=== PATIENT | female | born 1955 | race Caucasian/White ===

== ENCOUNTER 2017-03-18 10:26 | Emergency (ER) | payer BC, OTHER ==
--- NOTE | 2017-03-18 10:59 | ED Physician Documentation ---
PD HPI FOCAL NEURO - Stated complaint Stated Complaint: LEFT SIDE NUMBNESS - Chief complaint Chief Complaint: Neuro - History obtained from History obtained from: Patient - History of Present Illness Timing - onset: Yesterday Timing - details: Gradual onset, Still present Time of symptom onset unknown: Time of onset unknown (yesterday) Severity of deficit: Mild Numbness: Face, Arm, Hand, Left Associated symptoms: No: Headache, Nausea / vomiting, Chest pain Baseline status: positive: A&OX3, ambulatory, indep Similar symptoms before: Has not had sx before - Additional information Additional information: The patient is a 61-year-old female who presents with decreased sensation in her left upper extremity and face. She first noticed decreased sensation in her left hand yesterday, and felt fatigued last night with mild headache. She took an Aleve p.m. She awoke this morning with decreased sensation extending up her left arm, and involving her neck and left side of her face. She denies any weakness. She has no headache this morning. She denies visual disturbance or problem with her speech. She denies chest pain, shortness of breath, nausea or vomiting. She reports an episode about 1 month ago of difficulty with her speech for a very brief period. She denies history of similar symptoms prior to that. Review of Systems Constitutional: reports: Fatigue (last night). denies: Fever Eyes: denies: Loss of vision, Decreased vision Ears: denies: Tinnitus/ringing Nose: denies: Congestion Throat: denies: Sore throat Cardiac: denies: Chest pain / pressure, Palpitations Respiratory: denies: Dyspnea, Cough GI: denies: Abdominal Pain, Nausea, Vomiting : denies: Dysuria Skin: denies: Rash Musculoskeletal: denies: Neck pain, Back pain, Extremity pain, Extremity swelling Neurologic: reports: Numbness (left face and upper extremity.). denies: Focal weakness, Altered mental status PD PAST MEDICAL HISTORY - Past Medical History Past Medical History: Yes - Past Surgical History Past Surgical History: No - Present Medications Home Medications: Ambulatory Orders Medication Instructions Recorded Confirmed Mirtazapine 7.5 mg PO DAILY 03/18/17 03/18/17 - Allergies Allergies/Adverse Reactions: Allergies Allergy/AdvReac Type Severity Reaction Status Date / Time No Known Drug Allergies Allergy Verified 03/18/17 10:31 - Social History Does the pt smoke?: No Smoking Status: Never smoker Does the pt drink ETOH?: Yes Does the pt have substance abuse?: No - POLST Patient has POLST: No PD ED PE NORMAL - Vitals Vital signs reviewed: Yes (normal) - General General: Alert and oriented X 3, Well developed/nourished - HEENT HEENT: Atraumatic, PERRL, EOMI, Ears normal, Pharynx benign, Other (no visual field deficit) - Neck Neck: Supple, no meningeal sign, No adenopathy, No JVD - Cardiac Cardiac: RRR, No murmur - Respiratory Respiratory: No respiratory distress, Clear bilaterally - Abdomen Abdomen: Soft, Non tender - Back Back: No CVA TTP - Derm Derm: No rash - Extremities Extremities: No edema, No calf tenderness / cord - Neuro Neuro: Alert and oriented X 3, No motor deficit, Normal speech, Other ( Decreased light touch sensation on the left side of the face, with sparing of the forehead. Decreased light touch sensation of the left upper extremity, including upper arm, forearm, and hand. Normal sensation of the left lower extremity.) NIHSS - Time Time: 10:45 - Level of Consciousness Level of consciousness: (0) Alert, Keenly responsive LOC Questions: (0) Answers both Q's correct LOC Commands: (0) Performs both correctly - Gaze Best Gaze: (0) Normal - Visual Visual: (0) No loss - Facial Palsy Facial Palsy: (0) Normal, symmetrical movement - Motor Arms (both separate) Motor Arm (right): (0) No drift Motor Arm (left): (0) No drift - Motor Legs (both separate) Motor Leg (right): (0) No drift Motor Leg (left): (0) No drift - Limb Ataxia Limb Ataxia: (0) Absent - Sensory Sensory: (1) Bipz-dm-demyjcga loss - Best Language Best Language: (0) No aphasia - Dysarthria Dysarthria: (0) Normal - Extinction and Inattention (formally neg Extinction and inattention: (0) No abnormality - Total Score/Results Total Score/Result: 1 Results - Vitals Vitals: Vital Signs - 24 hr 03/18/17 17:56 Temperature 36.8 C Heart Rate 78 Respiratory 15 Rate Blood Pressure 98/60 O2 Saturation 100 Oxygen O2 Source Room air - EKG (time done) 10:44 Rate: Rate (enter#) Rhythm: NSR, LAE, ATIF [place]: Normal Intervals: Normal ME QRS: Normal Ischemia: Normal ST segments Computer interpretation: Agree with computer - Labs Labs: Laboratory Tests 03/18/17 03/18/17 03/18/17 11:10 11:10 11:10 WBC 7.3 RBC 4.29 Hgb 13.5 Hct 40.4 MCV 94.1 MCH 31.6 H MCHC 33.5 RDW 12.6 Plt Count 178 MPV 9.2 Neut # 4.9 Lymph # 1.8 [place] # 0.6 Eos # 0.0 Baso # 0.1 Absolute Nucleated RBC 0.00 Nucleated RBC % 0.0 D-Dimer Sodium 141 Potassium 4.1 Chloride 106 Carbon Dioxide 27 Anion Gap 8.0 BUN 17 Creatinine 0.7 Estimated GFR (MDRD) 86 L Glucose 95 Calcium 9.8 Total Bilirubin 0.8 AST 26 ALT 19 Alkaline Phosphatase 51 Troponin I < 0.04 Total Protein 7.3 Albumin 4.3 Globulin 3.0 Albumin/Globulin Ratio 1.4 Lipase 26 03/18/17 11:10 WBC RBC Hgb Hct MCV MCH MCHC RDW Plt Count MPV Neut # Lymph # [place] # Eos # Baso # Absolute Nucleated RBC Nucleated RBC % D-Dimer < 200.0 L Sodium Potassium Chloride Carbon Dioxide Anion Gap BUN Creatinine Estimated GFR (MDRD) Glucose Calcium Total Bilirubin AST ALT Alkaline Phosphatase Troponin I Total Protein Albumin Globulin Albumin/Globulin Ratio Lipase - Rads (name of study) head CT w/o Radiology: Prelim report reviewed, EMP read contemporaneously, See rad report ( Generalized minimal age-related cortical atrophic changes without evidence of acute intracranial abnormality.) Carotid Duplex scan Radiology: Prelim report reviewed, EMP read contemporaneously, See rad report ( Possible dissection flap in left carotid bulb.) CT angio neck Radiology: Prelim report reviewed, Discussed with rads, See rad report ( Completely normal carotid arteries, without evidence of dissection.) PD MEDICAL DECISION MAKING - ED course Complexity details: reviewed results, re-evaluated patient, considered differential, d/w patient, d/w family ED course: The patient's presentation is most consistent with cervical radiculopathy, with symptoms consisting of decreased light touch sensation of the left upper extremity. There is also slightly decreased light touch sensation on the left side of the face, with sparing of the forehead. There is no motor deficit. Head CT without contrast reveals no radiographic abnormality. A carotid duplex scan was performed, and the radiologist reports suspicious finding at the left carotid bulb, which reports as suspicious for possible carotid dissection. To further evaluate the possibility of carotid dissection, a CT angiogram of the neck was performed. It reveals "stone cold normal carotid arteries" as per my discussion with the radiologist. CBC, chemistry panel, and d-dimer are all normal. Multiple sclerosis remains a possible consideration, and could be further evaluated with outpatient MRI. Treatment in the emergency department included administration of 4 baby aspirin orally, and normal saline IV. I discussed with the patient and her the results of the imaging studies, outpatient follow-up, as well as potentially worrisome signs or symptoms that should prompt reevaluation in the emergency department. Departure - Departure Disposition: 01 Home, Self Care Clinical Impression: Left upper extremity numbness, Cervical radiculopathy Condition: Stable Instructions: ED Cervical Radiculopathy Follow-Up: Nicole Carreon MD [Physician No Access] - Comments: Take 1 baby aspirin daily. Follow up with your primary physician within 1 week. Call to schedule an appointment. Return to the emergency department if you develop increasing numbness or weakness, or otherwise worsening symptoms. Discharge Date/Time: 03/18/17 18:16
[2017-03-18 11:17] LABS: BASOPHILS # (AUTO) 0.1 10^3/uL (0.0-0.1); BASOPHILS % (AUTO) 0.8 %; EOSINOPHILS % (AUTO) 0.5 %; HCT - HEMATOCRIT 40.4 % (37.0-47.0); HGB - HEMOGLOBIN 13.5 g/dL (12.0-16.0); LYMPHOCYTES # (AUTO) 1.8 10^3/uL (1.5-3.5); LYMPHOCYTES % (AUTO) 24.3 %; MEAN CORPUSCULAR HEMOGLOBIN 31.6 pg (27.0-31.0); MEAN CORPUSCULAR HGB CONC 33.5 g/dL (32.0-36.0); MEAN CORPUSCULAR VOLUME 94.1 fL (81.0-99.0); MEAN PLATELET VOLUME 9.2 fL (7.9-10.8); MONOCYTES # (AUTO) 0.6 10^3/uL (0.0-1.0); MONOCYTES % (AUTO) 7.9 %; NEUTROPHILS # (AUTO) 4.9 10^3/uL (1.5-6.6); NEUTROPHILS % (AUTO) 66.5 %; RED BLOOD COUNT 4.29 10^6/uL (4.20-5.40); RED CELL DISTRIBUTION WIDTH 12.6 % (12.0-15.0); UNCORRECTED WHITE BLOOD COUNT 7.3 x10^3/uL; WHITE BLOOD COUNT 7.3 x10^3/uL (4.8-10.8)
[2017-03-18 11:30] LABS: ALBUMIN/GLOBULIN RATIO 1.4 (1.0-2.2); BILIRUBIN,TOTAL 0.8 mg/dL (0.2-1.0); CALCIUM 9.8 mg/dL (8.5-10.3); CREATININE 0.7 mg/dL (0.4-1.0); POTASSIUM 4.1 mmol/L (3.5-5.0); TOTAL PROTEIN 7.3 g/dL (6.7-8.2)
--- NOTE | 2017-03-18 11:55 | CT Preliminary Report ---
Exam: CT HEAD W/O IMPRESSION: Generalized minimal age-related cortical atrophic changes without evidence of acute intra cranial abnormality. [facility] SITE ID: [id number]
--- NOTE | 2017-03-18 11:57 | CT Report ---
EXAM: CT HEAD EXAM DATE: 03/18/2017 11:34 AM. CLINICAL HISTORY: Left sided neuro deficits (left facial, arm, and hand numbness today). COMPARISON: MRA sequences only from 11/28/2009. TECHNIQUE: Multiaxial CT images were obtained from the foramen magnum to the vertex. IV contrast: Non e. Reformats: Coronal. In accordance with CT protocol optimization, one or more of the following dose reduction techniques w ere utilized for this exam: automated exposure control, adjustment of mA and/or KV based on patient s ize, or use of iterative reconstructive technique. FINDINGS: Parenchyma: No intraparenchymal hemorrhage. No evidence of mass, midline shift, or CT findings of acu te infarction. Puri-white differentiation is distinct. Extraaxial Spaces: No subdural or epidural collections identified. Ventricles: The ventricles and cortical sulci are minimally enlarged, consistent with age-related tis stephanie loss. Sinuses and orbits: Imaged paranasal sinuses, orbits, and mastoids show no significant abnormality. Bones: No evidence of fracture or calvarial defect. Other: None. IMPRESSION: Generalized minimal age-related cortical atrophic changes without evidence of acute intra cranial abnormality. [facility] Referring Provider Line: [phone] SITE ID: [id number]
[2017-03-18] MEDS ORDERED: ASPIRIN CHEW 81 MG TABLET PO STA (12:34)
[2017-03-18] MEDS ORDERED: ASPIRIN CHEW 81 MG TABLET ONE (12:52)
[2017-03-18] MEDS ORDERED: IOPAMIDOL-300 100 ML VIAL IVP ONE ×2 (14:01→15:21)
[2017-03-18] MEDS ORDERED: SODIUM CHLORIDE 0.9% 1,000 ML IV ONE (14:10)
--- NOTE | 2017-03-18 17:08 | CT Preliminary Report ---
Exam: CT NECK ANGIO IMPRESSION: CTA neck: 1. No significant narrowing is present in either cervical ICA or cervical vertebral artery. 2. Great vessel origins are widely patent. CTA head: 1. The conical outpouching of contrast along the posterior wall of the paraclinoid ICA bilaterally ar e favored to reflect infundibular origins to hypoplastic vessels based on the motion area comparison MRA. One might consider repeating the MRA with less motion to confirm 2. Expected enhancement is seen in the major dural venous sinuses Other: 1. Degenerative disk disease and osteophyte formation are present at C4-C5 and C5-C6 [facility] SITE ID: [id number]
--- NOTE | 2017-03-18 17:22 | CT Report ---
EXAM: CT ANGIOGRAM HEAD AND NECK EXAM DATE: 03/18/2017 03:21 PM. CLINICAL HISTORY: Carotid duplex suspicious for left carotid dissect. COMPARISON: Carotid ultrasound from today. MRA brain. TECHNIQUE: Routine axial helical imaging was performed from the vertex through the aortic arch. IV Co ntrast: 100 mL [id number]. Reconstructions: Routine multiplanar 3D MIP reconstructions. Evaluation of arterial stenosis is based on a NASCET method of measurement. In accordance with CT protocol optimization, one or more of the following dose reduction techniques w ere utilized for this exam: automated exposure control, adjustment of mA and/or KV based on patient s ize, or use of iterative reconstructive technique. FINDINGS: CTA neck: Right Carotid: No significant narrowing is seen in the cervical ICA or the CCA. Left Carotid: No significant narrowing is seen in the cervical ICA or the CCA. Vertebrals: No significant narrowing is present in either cervical vertebral artery. The left vertebr al artery is dominant. Great vessel origins: No hemodynamically significant stenosis is present. CTA head: There is a 1-2 mm conical outpouching of contrast along the posterior wall of each paraclinoid ICA. A definite vessel is not seen associated with the outpouching of contrast on today's CT angiogram. On the comparison motion degraded MRA, there is a suggestion of a tiny vessel associated with the outpou jay on the left and on the right. Venous contamination limits the study. No filling defect is identified in the M1 segment of the MCA or in the proximal M2 segments of either MCA. No filling defect or high-grade stenosis is seen in the basilar trunk. The anterior and posteri or cerebral arteries are patent. The appearance of prominent enhancement near the bifurcation of the M1 segment left MCA is felt to reflect venous structures. Expected enhancement is seen in the major dural venous sinuses. Other: No mass is present in either orbit. No mass is present in the nasopharynx. No mass is present in eith er submandibular or parotid gland. No subglottic stenosis is present. The thyroid gland is not abnormally enlarged. No bulky lymphadenop athy is seen along either jugular chain or in the upper mediastinum. Stellate densities are present in each apex greater on the left relative to the right suggestive of s carring. Degenerative disk disease and osteophyte formation are present at C4-C5 and C5-C6. Spondylolisthesis is present at these levels as well. IMPRESSION: CTA neck: 1. No significant narrowing is present in either cervical ICA or cervical vertebral artery. 2. Great vessel origins are widely patent. CTA head: 1. The conical outpouching of contrast along the posterior wall of the paraclinoid ICA bilaterally ar e favored to reflect infundibular origins to hypoplastic vessels based on the motion degraded compari son MRA. One might consider repeating the MRA with less motion to confirm. 2. Expected enhancement is seen in the major dural venous sinuses. Other: 1. Degenerative disk disease and osteophyte formation are present at C4-C5 and C5-C6. 2. Scarring is suspected in each lung apex [facility] Referring Provider Line: [phone] SITE ID: [id number]
[2017-03-18 18:00] VITALS: BP 98/60
--- NOTE | 2017-03-19 09:07 | Ultrasound Report ---
CAROTID DUPLEX: 03/18/2017 CLINICAL INDICATION: Left-sided neuro deficits. TECHNIQUE: Real-time sonographic vascular imaging was performed by the lamp wirer through the carotid arteries utilizing both color-flow and Doppler spectral analysis. Multiple ambulatory services representative static images were saved for review. Vessel PSV cm/sec 2D Plaque Estimate % EDV cm/sec ICA/CCA PSV % Stenosis RCCA Prox 126 -- RCCA Dist 104 38 -- RECA 74 -- RT BULB 68 -- 27 0.65 FRED Prox 105 -- 41 1.00 FRED Mid 101 -- 46 0.97 FRED Dist 120 -- 57 1.1 RVA 92 RVA flow direction: Antegrade. Vessel PSV cm/sec 2D Plaque Estimate % EDV cm/sec ICA/CCA PSV % Stenosis LCCA Prox 140 -- LCCA Dist 101 38 -- LECA 80 -- LFT BULB 95 -- 28 0.94 LICA Prox 93 -- 37 0.92 LICA Mid 89 -- 44 0.88 LICA Dist 87 -- 35 0.86 LVA 79 LVA flow direction: Antegrade. Velocity criteria are extrapolated from diameter data as defined by the Society of Radiologists in Ultrasound Consensus Conference Radiology 2003; 229; 340-346. Degree of Stenosis % ICA PSV cm/sec Plaque Estimate % ICA/CCA RSV Ratio ICA EDV cm/sec Normal < 125 None < 2.0 < 40 <50 < 125 < 50 < 2.0 < 40 50-69 125 - 130 >/= 50 2.0 - 4.0 40 - 100 >/= 70 but less than near occlusion > 230 >/= 50 > 4.0 > 100 Near occlusion High, low, or undetectable Visible lumen Variable Variable Total occlusion Undetectable No detectable lumen Not applicable Not applicable FINDINGS RIGHT: There is minimal plaquing in the right carotid bifurcation, without evidence of a focal hemodynamically significant stenosis. LEFT: There is minimal plaquing in the left carotid bifurcation, without evidence of a focal hemodynamically significant stenosis. There is a markedly abnormal waveform in the left carotid bulb, with a high frequency oscillation type turbulence present, and on santana scale imaging, there is a suggestion of a possible dissection flap in the distal bulb. Further evaluation with CT angiography of the neck is recommended. The vertebral arteries demonstrate antegrade flow bilaterally. IMPRESSION: POSSIBLE DISSECTION FLAP IN THE LEFT CAROTID BULB. FURTHER EVALUATION WITH CT ANGIOGRAPHY IS RECOMMENDED. NO EVIDENCE OF A HEMODYNAMICALLY SIGNIFICANT STENOSIS IN EITHER CAROTID BIFURCATION. CRITICAL RESULT: Results called to Dr. Cosme in the emergency department on at [address] [facility]
== END 2017-03-18 18:16 | disposition home or self-care (01) ==
LOC: ED 10:26
DX: R20.0 Anesthesia of skin (principal); M54.12 Radiculopathy, cervical region
CPT/HCPCS: 36415; 70450; 70498; 80053; 83690; 84484; 85025; 85379; 93005; 93880; 99284; A9270; Q9967

== ENCOUNTER 2017-03-29 13:50 | Outpatient (CLI) | payer SELFPAY | END 2017-03-29 13:51 | disposition EMS.NT | LOC: EMS 13:50 | PROVIDERS: ATTEND Surgery | DX: R20.0 Anesthesia of skin (principal) ==

== ENCOUNTER 2019-06-12 16:04 | Inpatient (IN) | payer BC, OTHER ==
--- NOTE | 2019-06-12 16:46 | ED Physician Documentation ---
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 Her neurologist is Dr. Villa at [facility]. She is noted a few days may be 3 days of right-sided neck pain and swelling just below the angle of the mandible. Feels like something is stuck in there, she also notes some mild low back pain and people who accompany her states she is mildly confused, for example the time zone on her phone got messed up and she really could not figure that out.) Review of Systems Ten Systems: 10 systems reviewed and negative Constitutional: denies: Fever, Chills Nose: denies: Rhinorrhea / runny nose, Congestion Throat: reports: Sore throat Cardiac: denies: Chest pain / pressure, Palpitations Respiratory: denies: Dyspnea, Cough PD PAST MEDICAL HISTORY - Past Surgical History Past Surgical History: No - Present Medications Home Medications: Ambulatory Orders Medication Instructions Recorded Confirmed Mirtazapine 7.5 mg PO DAILY 03/18/17 03/18/17 Citalopram [CeleXA] 10 mg PO DAILY 06/12/19 06/12/19 Mirabegron [Myrbetriq] 25 mg PO DAILY 06/12/19 06/12/19 - Allergies Allergies/Adverse Reactions: Allergies Allergy/AdvReac Type Severity Reaction Status Date / Time No Known Drug Allergies Allergy Verified 06/12/19 16:17 - Social History Does the pt smoke?: No Smoking Status: Never smoker Does the pt drink ETOH?: Yes Does the pt have substance abuse?: No - POLST Patient has POLST: No PD ED PE NORMAL - Vitals Vital signs reviewed: Yes - General General: Other (Very slightly slow to answer questions, but she is alert and oriented x3.) - HEENT HEENT: PERRL, EOMI, Other (She is very mild swelling under the angle of the jaw on the right that is asymmetric and nontender. There is no warmth or redness. Neck range of motion is full both with rotation and flexion and extension. I do not see a dental infection. No sublingual edema.) - Neck Neck: Supple, no meningeal sign, No bony TTP, No adenopathy - Cardiac Cardiac: RRR, No murmur - Respiratory Respiratory: No respiratory distress, Clear bilaterally - Abdomen Abdomen: Normal bowel sounds, Soft, Non tender - Back Back: No CVA TTP, No spinal TTP - Derm Derm: Normal color, Warm and dry - Extremities Extremities: No edema, No calf tenderness / cord - Neuro Neuro: Alert and oriented X 3, No motor deficit, No sensory deficit, Normal speech - Psych Psych: Normal mood, Normal affect Results - Vitals Vitals: Vital Signs - 24 hr 06/12/19 06/12/19 06/12/19 16:13 16:53 18:41 Temperature 36.7 C Heart Rate 102 H 90 92 Respiratory 18 16 16 Rate Blood Pressure 99/70 114/72 117/70 O2 Saturation 100 100 99 06/12/19 06/12/19 19:07 20:47 Temperature 36.2 C L Heart Rate 97 92 Respiratory 16 15 Rate Blood Pressure 106/75 122/74 O2 Saturation 100 97 Oxygen O2 Source Room air - Labs Labs: Laboratory Tests 06/12/19 06/12/19 06/12/19 16:50 16:50 16:50 WBC 5.0 RBC 3.94 L Hgb 13.6 Hct 41.5 MCV 105.3 H MCH 34.5 H MCHC 32.8 RDW 13.2 Plt Count 151 MPV 9.7 Neut # (Auto) 3.3 Lymph # (Auto) 0.8 L [place] # (Auto) 0.9 Eos # (Auto) 0.0 Baso # (Auto) 0.0 Absolute Nucleated RBC 0.00 Nucleated RBC % 0.0 Sodium 135 Potassium 3.5 Chloride 97 L Carbon Dioxide 29 Anion Gap 9.0 BUN 24 H Creatinine 0.7 Estimated GFR (MDRD) 85 L Glucose 100 Calcium 8.6 Total Bilirubin 1.0 AST 24 ALT 13 Alkaline Phosphatase 41 L Total Protein 6.4 L Albumin 3.7 Globulin 2.7 Albumin/Globulin Ratio 1.4 Lipase 36 Urine Color YELLOW Urine Clarity SL. CLOUDY Urine pH 6.0 Ur Specific [place] 1.020 Urine Protein NEGATIVE Urine Glucose (UA) NEGATIVE Urine Ketones NEGATIVE Urine Occult Blood TRACE-LYSE Urine Nitrite NEGATIVE Urine Bilirubin NEGATIVE Urine Urobilinogen 0.2 (NORMAL) Ur Leukocyte Esterase SMALL H Urine RBC 0-5 Urine WBC 11-25 H Ur Squamous Epith Cells MOD Squamous H Urine Bacteria Moderate H Ur Microscopic Review INDICATED Urine Culture Comments NOT INDICATED Urine Opiates Screen NEGATIVE Ur Oxycodone Screen NEGATIVE Urine Methadone Screen NEGATIVE Ur Propoxyphene Screen NEGATIVE Ur Barbiturates Screen NEGATIVE Ur Tricyclics Screen NEGATIVE Ur Phencyclidine Scrn NEGATIVE Ur Amphetamine Screen NEGATIVE U Methamphetamines Scrn NEGATIVE U Benzodiazepines Scrn NEGATIVE Urine Cocaine Screen NEGATIVE U Cannabinoids Screen NEGATIVE Ethyl Alcohol < 5.0 06/12/19 18:00 WBC RBC Hgb Hct MCV MCH MCHC RDW Plt Count MPV Neut # (Auto) Lymph # (Auto) [place] # (Auto) Eos # (Auto) Baso # (Auto) Absolute Nucleated RBC Nucleated RBC % Sodium Potassium Chloride Carbon Dioxide Anion Gap BUN Creatinine Estimated GFR (MDRD) Glucose Calcium Total Bilirubin AST ALT Alkaline Phosphatase Total Protein Albumin Globulin Albumin/Globulin Ratio Lipase Urine Color YELLOW Urine Clarity CLEAR Urine pH 6.0 Ur Specific [place] 1.010 Urine Protein NEGATIVE Urine Glucose (UA) NEGATIVE Urine Ketones NEGATIVE Urine Occult Blood TRACE-INTA Urine Nitrite NEGATIVE Urine Bilirubin NEGATIVE Urine Urobilinogen 0.2 (NORMAL) Ur Leukocyte Esterase NEGATIVE Urine RBC Urine WBC Ur Squamous Epith Cells Urine Bacteria Ur Microscopic Review NOT INDICATED Urine Culture Comments NOT INDICATED Urine Opiates Screen Ur Oxycodone Screen Urine Methadone Screen Ur Propoxyphene Screen Ur Barbiturates Screen Ur Tricyclics Screen Ur Phencyclidine Scrn Ur Amphetamine Screen U Methamphetamines Scrn U Benzodiazepines Scrn Urine Cocaine Screen U Cannabinoids Screen Ethyl Alcohol - Rads (name of study) CT Neck with contrast Radiology: EMP read contemporaneously (Right-sided pharyngitis/tonsillitis, no evidence of drainable abscess, mild narrowing of the oropharynx and supraglottic larynx, reactive retropharyngeal effusion measuring up to 7 mm in thickness at the level of C3-C4.) CT head Radiology: EMP read contemporaneously (NAD, atrophy) PD MEDICAL DECISION MAKING - ED course ED course: 83-year-old woman with 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 Advanced imaging shows no acute issues in the brain but she does have focal tonsillitis with possibly a retropharyngeal abscess measuring 7 mm in Thickness. She was administered Unasyn and dexamethasone IV. Given the potential need for neurologic and ENT consultation and her history with that facility [facility] was called and Dr. Noel Gillespie accepted her in transfer at 7:50 PM and cobras were completed. She is stable for transport to a higher level of care for the above consultations. Patient requested that her friend Breanna Pollack be the point of contact if her is not available, her is currently traveling internationally and may not be contactable easily. Her friend is Breanna Pollack, her phone number is [phone]. Unfortunately [facility] did not have a bed available for her, they suspect they will be able to accept her in the morning. I spoke with Dr. Campbell for admission pending transfer at 9:05 PM. Departure - Departure Disposition: [facility] DC/[place] Clinical Impression: Retropharyngeal abscess, Tonsillitis, Altered behavior, Autoimmune encephalitis Condition: Stable
[2019-06-12] MEDS ORDERED: IOVERSOL 320 100 ML VIAL IVP ONE ×2 (16:51→17:45)
[2019-06-12 16:55] LABS: MUDS CUTOFF CONCENTRATIONS CUTOFF CONC BELOW:
[2019-06-12 16:59] LABS: BILIRUBIN,URINE NEGATIVE (NEGATIVE); GLUCOSE, URINE (UA) NEGATIVE (NEGATIVE); KETONES,URINE (UA) NEGATIVE (NEGATIVE); LEUKOCYTE ESTERASE, URINE SMALL (NEGATIVE); NITRITE,URINE NEGATIVE (NEGATIVE); OCCULT BLOOD,URINE TRACE-LYSE (NEGATIVE); PROTEIN,URINE NEGATIVE (NEGATIVE); UROBILINOGEN,URINE 0.2 (NORMAL) E.U./dL (NORMAL)
[2019-06-12 17:04] LABS: BASOPHILS % (AUTO) 0.4 %; EOSINOPHILS % (AUTO) 0.2 %; HGB - HEMOGLOBIN 13.6 g/dL (12.0-16.0); LYMPHOCYTES # (AUTO) 0.8 10^3/uL (1.5-3.5); LYMPHOCYTES % (AUTO) 16.1 %; MEAN CORPUSCULAR HEMOGLOBIN 34.5 pg (27.0-31.0); MEAN CORPUSCULAR HGB CONC 32.8 g/dL (32.0-36.0); MEAN CORPUSCULAR VOLUME 105.3 fL (81.0-99.0); MEAN PLATELET VOLUME 9.7 fL (7.9-10.8); MONOCYTES # (AUTO) 0.9 10^3/uL (0.0-1.0); MONOCYTES % (AUTO) 16.9 %; NEUTROPHILS # (AUTO) 3.3 10^3/uL (1.5-6.6); NEUTROPHILS % (AUTO) 66.2 %; PLT - PLATELET COUNT 151 10^3/uL (130-450); RED BLOOD COUNT 3.94 10^6/uL (4.20-5.40); RED CELL DISTRIBUTION WIDTH 13.2 % (12.0-15.0)
[2019-06-12 17:16] LABS: ALBUMIN 3.7 g/dL (3.2-5.5); ALBUMIN/GLOBULIN RATIO 1.4 (1.0-2.2); ALKALINE PHOSPHATASE 41 IU/L (42-121); ALT ALANINE AMINOTRANSFERASE 13 IU/L (10-60); AST ASPARTATE AMINOTRANSFERASE 24 IU/L (10-42); BUN - BLOOD UREA NITROGEN 24 mg/dL (6-20); CALCIUM 8.6 mg/dL (8.5-10.3); CARBON DIOXIDE - CO2 29 mmol/L (21-32); CHLORIDE 97 mmol/L (101-111); CREATININE 0.7 mg/dL (0.4-1.0); GFR - MDRD 85 (>89); GLUCOSE 100 mg/dL (70-100); LIPASE 36 U/L (22-51); SODIUM 135 mmol/L (135-145); TOTAL PROTEIN 6.4 g/dL (6.7-8.2)
[2019-06-12 17:22] LABS: CLARITY,URINE SL. CLOUDY (CLEAR)
[2019-06-12 17:23] LABS: AMPHETAMINE SCREEN,URINE NEGATIVE (NEGATIVE); BACTERIA,URINE Moderate /HPF (None Seen); BENZODIAZEPINES SCREEN, URINE NEGATIVE (NEGATIVE); COCAINE SCREEN URINE NEGATIVE (NEGATIVE); METHADONE SCREEN, URINE NEGATIVE (NEGATIVE); METHAMPHETAMINES SCREEN, URINE NEGATIVE (NEGATIVE); OPIATE SCREEN, URINE NEGATIVE (NEGATIVE); OXYCODONE SCREEN, URINE NEGATIVE (NEGATIVE); PROPOXYPHENE SCREEN, URINE NEGATIVE (NEGATIVE); RBC,URINE 0-5 /HPF (0-5); SQUAMOUS EPITHELIAL CELL,UR MOD Squamous (<= Few); TRICYCLIC ANTIDEPRESSANT,URINE NEGATIVE (NEGATIVE)
--- NOTE | 2019-06-12 18:03 | CT Report ---
Reason: confusion Procedure Date: 06/12/2019 Accession Number: [id number] / [id number] Procedure: CT - HEAD WO CPT Code: Final Report FULL RESULT: EXAM: CT HEAD EXAM DATE: 06/12/2019 05:44 PM. CLINICAL HISTORY: Confusion. COMPARISON: NECK ANGIO 03/18/2017 3:11 PM HEAD W/O 03/18/2017 11:34 AM. TECHNIQUE: Multiaxial CT images were obtained from the foramen magnum to the vertex. Reformats: Sagittal and coronal. IV contrast: None. In accordance with CT protocol optimization, one or more of the following dose reduction techniques were utilized for this exam: automated exposure control, adjustment of mA and/or KV based on patient size, or use of iterative reconstructive technique. FINDINGS: Parenchyma: No intraparenchymal hemorrhage. Superior left frontal lobe encephalomalacia. Old lacunar infarcts in both basal ganglia and frontal lobes. No evidence of mass, midline shift, or CT findings of acute infarction. Puri-white differentiation is distinct. Extraaxial Spaces: Normal for age. No subdural or epidural collections identified. Ventricles: The ventricles and cortical sulci are prominent, consistent with age-related tissue loss. Sinuses and orbits: Imaged paranasal sinuses, orbits, and mastoids show no significant abnormality. Bones: Left frontal craniotomy defect noted. Other: None. IMPRESSION: Mild cortical atrophic changes with chronic bifrontal abnormalities. No evidence of acute intracranial abnormality. RADIA
[2019-06-12 18:04] LABS: BILIRUBIN,URINE NEGATIVE (NEGATIVE); GLUCOSE, URINE (UA) NEGATIVE (NEGATIVE); KETONES,URINE (UA) NEGATIVE (NEGATIVE); LEUKOCYTE ESTERASE, URINE NEGATIVE (NEGATIVE); NITRITE,URINE NEGATIVE (NEGATIVE); OCCULT BLOOD,URINE TRACE-INTA (NEGATIVE); PROTEIN,URINE NEGATIVE (NEGATIVE); UROBILINOGEN,URINE 0.2 (NORMAL) E.U./dL (NORMAL)
[2019-06-12 18:13] LABS: CLARITY,URINE CLEAR (CLEAR)
--- NOTE | 2019-06-12 18:20 | CT Report ---
Reason: R neck swelling Procedure Date: 06/12/2019 Accession Number: [id number] / [id number] Procedure: CT - SOFT TISSUE NECK W CPT Code: Final Report FULL RESULT: EXAM: CT SOFT TISSUE NECK WITH CONTRAST. EXAM DATE: 06/12/2019 05:44 PM. HISTORY: Right neck swelling. COMPARISONS: NECK ANGIO 03/18/2017 3:11 PM. TECHNIQUE: Routine soft tissue neck CT protocol with contrast. Reconstructions: Coronal and sagittal. IV contrast: OPTI 320 80 mL. In accordance with CT protocol optimization, one or more of the following dose reduction techniques were utilized for this exam: automated exposure control, adjustment of mA and/or KV based on patient size, or use of iterative reconstructive technique. FINDINGS: Visualized Intracranial Contents: Unremarkable. Orbits: Symmetric and unremarkable. Sinuses: Visualized paranasal sinuses and mastoid air cells are clear. Oral cavity: The visualized oral cavity is unremarkable. The floor of the mouth is symmetric. Pharynx: Beam-hardening artifact is present at the occlusal plane limiting evaluation. However, there is suggestion of an area of soft tissue asymmetry involving the right palatine tonsil (image 42, series 2) which appears to be causing mild narrowing of the oropharynx. However, no definite superimposed intrasubstance drainable fluid collection is seen. The infratemporal fossa and parapharyngeal spaces are unremarkable. A retropharyngeal effusion is greatest at C3-C4 measuring 7 mm in the AP dimension. It extends from C1-C2 through C5-C6. There is mild mass effect on the right tongue base due to adjacent inflammatory changes. Suspected inflammatory changes in the right oropharyngeal wall cause obliteration of the right vallecula and piriform sinus. Larynx: There is mild narrowing of the supraglottic larynx due to right-sided inflammatory changes as well as a retropharyngeal effusion. Vocal cords are symmetric. The visualized trachea is unremarkable. Parotid and Submandibular Glands: Symmetric and unremarkable. Lymph Nodes: Reactive jugulodigastric lymph nodes are present bilaterally. Soft tissues: No abnormal mass lesion or additional fluid collections are seen elsewhere in the soft tissues of the neck. Vascular Structures: Patent. Thyroid Gland: Normal. Lung: The visualized lung apices are clear. Bones: Moderate degenerative changes are present throughout the cervical spine, stable. IMPRESSION: 1. Findings suspicious for right-sided pharyngitis/tonsillitis but without evidence of an intrasubstance drainable abscess given beam-hardening artifact at the occlusal plane. 2. Right-sided neck inflammatory changes are present causing mild narrowing of the oropharynx and supraglottic larynx. 3. A reactive retropharyngeal effusion is also present measuring up to 7 mm in AP thickness at the level of C3-C4. RADIA
[2019-06-12] MEDS ORDERED: AMPICILLIN/SULBACTAM 3 GM in SODIUM CHLORIDE 0.9% MINIBAG 100 ML IV STA (18:22)
[2019-06-12] MEDS ORDERED: DEXAMETHASONE 10 MG/ML VIAL IVP STA (19:50)
[2019-06-12] MEDS ORDERED: SODIUM CHLORIDE FLUSH 0.9% 10 ML SYRINGE IVP PRN (21:04)
[2019-06-12] MEDS ORDERED: ONDANSETRON 4 MG/2 ML VIAL IVP PRN (21:04)
[2019-06-12] MEDS ORDERED: ACETAMINOPHEN 325 MG TABLET PO PRN (21:04)
[2019-06-12] MEDS ORDERED: ONDANSETRON ODT 4 MG TABLET TL PRN (21:04)
[2019-06-12] MEDS ORDERED: MORPHINE 2 MG/ML CARPUJECT IVP PRN (21:04)
--- NOTE | 2019-06-12 21:15 | HISTORY & PHYSICAL EXAMINATION ---
Chief Complaint - Chief Complaint Chief Complaint: altered sensorium for a day History of Present Illness - Admitted From Admitted From:: Home/ER - History Obtained From Records Reviewed: [facility] History obtained from: Patient and Dr. 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 She is on immunotherapy and is followed by [facility]. She takes azathioprine. 3 days ago she noted that the right side of her neck was starting to hurt especially when she turned her head. She denies fever, sweats. No recent dental procedures. She then started having problems with swallowing on that same side of her neck. As she swallows she feels like even water gets stuck there. Her family feels that she is more confused than usual with history of encephalopathy and brought her in. [place] so she is here with mother in law and a cousin. She was evaluated in the emergency room by Dr. Whitlock and has normal oxygen saturations, is afebrile, mildly tachycardic at 102. Blood pressure slightly low at 99/70. Electrolytes are normal. White cell count is normal. She does have a mild confusion on physical exam but no focal neurological deficits. CT of the neck was done and she has right-sided pharyngitis/tonsillitis with an early retropharyngeal abscess. It is causing narrowing of the oropharynx and supraglottic larynx. A reactive retropharyngeal effusion is present up to 7 mm in AP thickness at the level of C3-C4. Dr. Whitlock has contacted [facility] and [facility]. Her family states there is very specific management of her encephalopathy when it gets worse. He was able to contact Dr. Noel Gillespie, ENT, who is excepted her in transfer. However they do not have a bed available for her tonight. I will be admitting her to our service overnight until she can be transferred tomorrow morning. In the emergency room she is already received steroids, IV antibiotics. History - Past Medical History Cardiovascular: reports: None Respiratory: reports: None Neuro: reports: Other (encephalopathy admission 3-4 times a VM since 2016) Endocrine/Autoimmune: reports: None GI: reports: None ROOM MANAGER: reports: Other () : reports: None HEENT: reports: None Psych: reports: None Musculoskeletal: reports: Fatigue, Other (vague joint pain daily) Derm: reports: None MRSA Hx?: No Other Past Medical History: Autoimmune disease - Encephalitis. - Family & Social History Family History Comment/Other: Mother at age 69 of a head and neck cancer that was diffusely metastatic. Father at age 92 of complications of gastric cancer but he did not have hypertension, coronary artery disease, diabetes. 2 brothers and one younger sister. All of them are completely healthy and do not have problems with high blood pressure, diabetes, cancer, thyroid. 3 children are completely healthy. There have no problems that she knows of Living arrangement: At home Living Situation: With spouse/s.o. 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 Her works for [employer] and they have lived all over the [place]. Her most favorite place to live was [facility]. But once the children came she really never worked outside the home. She never smoked. She has no history of chronic alcohol abuse. She has no history of recreational substance abuse. Her was born in [place], and they came back here approximately 2006 or 2007. - Substance History Use: Uses substance without health or social issues: NONE Abuse: Recurrent use of substance despite neg consequences: NONE Dependence: Experiences withdrawal or developed tolerances: NONE - POLST Patient has POLST: No POLST Status: Full Code Meds/Allgy - Home Medications Home Medications: Ambulatory Orders Medication Instructions Recorded Confirmed Mirtazapine 7.5 mg PO DAILY 03/18/17 03/18/17 Citalopram [CeleXA] 10 mg PO DAILY 06/12/19 06/12/19 Mirabegron [Myrbetriq] 25 mg PO DAILY 06/12/19 06/12/19 - Allergies Allergies/Adverse Reactions: Allergies Allergy/AdvReac Type Severity Reaction Status Date / Time No Known Drug Allergies Allergy Verified 06/12/19 16:17 Review of Systems - Constitutional Constitutional: reports: Fatigue. denies: Fever, Chills, Malaise, Poor appetite, Diaphoresis, Night sweats - Eyes Eyes: denies: Pain, Irritation, Amaurosis, Blurred vision, Dipolpia - Ears, Nose & Throat Ears, Nose & Throat: reports: Ear pain, Sore throat, Hoarseness. denies: Hearing loss, Hearing aids, Tinnitus, Nasal obstruction, Nasal congestion, Postnasal drainage, Dentures, Dental decay - Cardiovascular Cariovascular: denies: Irregular heart rate, Palpitations, Chest pain, Edema, Exertional dyspnea, Decr. exercise tolerance - Respiratory Respiratory: denies: Cough, Sputum production, Wheezing, Snoring, SOB at rest, SOB with exertion, Pleuritic pain - Gastrointestinal Gastrointestinal: denies: Abdominal pain, Abdominal distention, Constipation, Diarrhea, Coffee grounds emesis, Reflux/heartburn - Genitourinary Genitourinary: denies: Dysuria, Frequency, Urgency, Hematuria, Nocturia - Musculoskeletal Musculoskeletal: reports: Muscle aches, Joint pain. denies: Muscle pain, Back pain, Stiffness, Muscle weakness, Gout - Integumentary Integumentary: denies: Rash, Pruritis, Lesions, Pigment changes - Neurological Neurological: reports: Headache, Memory problems, Slurred speech. denies: General weakness, Focal weakness, Seizures, Incoordination - Psychiatric Psychiatric: denies: Depression, Anxiety, Suicidal, Hallucinations, Homicidal - Endocrine Endocrine: denies: Polyuria, Polydypsia, Polyphagia - Hematologic/Lymphatic Hematologic/Lymphatic: denies: Anemia, Bruising, Petechiae Prior Level of Functionality: She described herself is still able to drive a car, feed herself, dress herself. She hesitates when asked about things such as paying the bills or financial decisions. She states that her does most of that now. A generalized achiness will slow her down in the mornings and into the afternoons.She does not use any durable medical equipment. Exam - Vital Signs Reviewed Vital Signs: Yes Vital Signs: Vital Signs x48h Temp Pulse Resp BP Pulse Ox 06/12/19 21:11 37.4 C 06/12/19 20:47 92 15 122/74 97 06/12/19 19:07 36.2 C L 97 16 106/75 100 06/12/19 18:41 92 16 117/70 99 06/12/19 16:53 90 16 114/72 100 06/12/19 16:13 36.7 C 102 H 18 99/70 100 - Physical Exam General Appearance: positive: No acute distress, Alert, Other (Well-nourished well-developed white female who looks her stated age, sitting upright in bed, stating she is very hungry and very satisfied with a sandwich and applesauce she is eating.) Eyes Bilateral: positive: PERRL, EOMI ENT: positive: Pharynx nml. negative: Pharyngeal erythema Neck: positive: No JVD, Stiff neck (With pain on the right side of her neck when she turns her head to the right or tries to put her chin down. She has soft tissues swelling and adenopathy underneath the jawline. Voice is hoarse, and will crack in mid sentence at times.), Other (No drooling) Respiratory: negative: Chest non-tender, Wheezes, Rales, Rhonchi Cardiovascular: positive: Regular rate & rhythm. negative: Systolic murmur, Gallop/S4, Friction rub Peripheral Pulses: positive: 1+ Abdomen: positive: Non-tender, No organomegaly, Nml bowel sounds, No distention Skin: positive: Warm, Dry. negative: Diaphoresis, Pallor Extremities: positive: Non-tender, Full ROM, Nml appearance, No pedal edema Neurologic/Psychiatric: positive: Oriented x3, CN's nml (2-12), Motor nml, Other (When she first presented she seemed to have 1-2 beats of psychomotor slowing when she spoke to Dr. Galan. I have now seen her after a dose of antibiotics, steroids, and fluids. She appears to be completely lucid and a good historian with normal speech patterns.) Conclusion/Plan - Problem List (1) Retropharyngeal abscess Conclusion/Plan: It is early, small. Manifested mainly as pain in the soft tissues and dysphasia that is mild. There is no drooling, no fever, no elevated white cell count. Nevertheless this woman is immune compromised from azathioprine and steroids. Plan: Inpatient admission until she can be transferred Bed has already been assigned to her at [facility]. They will call us tomorrow morning to make arrangements for transfer ENT is already on the case and the accepting providers. Unasyn 3 g IV every 6 Oral pain medicines until midnight. N.p.o. after midnight. Changed to IV medicines for symptom management after midnight since she may go to the OR tomorrow morning. (2) Autoimmune encephalitis Conclusion/Plan: She states that this diagnosis has been 1 of a diagnosis of exclusion. She has been seen at the [facility] in [place], neurology department at [facility]. They really are not sure this is her true diagnosis of autoimmune encephalitis but they are, nevertheless, treating her as such. She is already taken her azathioprine. Received steroids in the ER. Neurologically she appears close to baseline for me right now. Family was stressed that she was definitely altered when they brought her in. Dr. Belcher noted a slight psychomotor slowing. That seems to have resolved after stay in the ED. (3) Full code status Conclusion/Plan: She states that if she were ever to be significantly brain-damaged, or significantly limited in her life because of neurological deficits, she would not want much done. But at this point in her life she feels like she is regaining quite a bit of function from when she was here in 2017. And she would want to be aggressively treated. Asked that she wants to be full code at this time. - Lab Results Lab results reviewed: Yes Stanton Bones: 06/12/19 16:50 06/12/19 16:50 - Diagnostic Imaging Results Diagnostic Imaging Results: positive: Final report reviewed Core Measures - Anticipated LOS I expect patient to be DC'd or transferred within 96 hours.: Yes - DVT/VTE - Prophylaxis VTE/DVT Device ordered at admit?: Yes
[2019-06-12] MEDS: SODIUM CHLORIDE 0.9% 1,000 ML IV SCH (22:19)
[2019-06-13] MEDS: AMPICILLIN/SULBACTAM 3 GM in SODIUM CHLORIDE 0.9% MINIBAG 100 ML IV SCH ×4 (00:42→17:57)
[2019-06-13] MEDS: SODIUM CHLORIDE FLUSH 0.9% 10 ML SYRINGE IVP SCH ×3 (00:47→16:24)
[2019-06-13 07:59] LABS: CALCIUM 8.5 mg/dL (8.5-10.3); CREATININE 0.6 mg/dL (0.4-1.0)
[2019-06-13 08:31] LABS: BASOPHILS % (AUTO) 0.3 %; HGB - HEMOGLOBIN 12.2 g/dL (12.0-16.0); LYMPHOCYTES # (AUTO) 0.3 10^3/uL (1.5-3.5); LYMPHOCYTES % (AUTO) 8.8 %; MEAN CORPUSCULAR HEMOGLOBIN 33.7 pg (27.0-31.0); MEAN CORPUSCULAR HGB CONC 32.8 g/dL (32.0-36.0); MEAN CORPUSCULAR VOLUME 102.8 fL (81.0-99.0); MEAN PLATELET VOLUME 10.2 fL (7.9-10.8); MONOCYTES # (AUTO) 0.3 10^3/uL (0.0-1.0); MONOCYTES % (AUTO) 8.3 %; NEUTROPHILS # (AUTO) 2.9 10^3/uL (1.5-6.6); NEUTROPHILS % (AUTO) 82.3 %; PLT - PLATELET COUNT 145 10^3/uL (130-450); RED BLOOD COUNT 3.62 10^6/uL (4.20-5.40); WHITE BLOOD COUNT 3.5 x10^3/uL (4.8-10.8)
[2019-06-13] MEDS: SODIUM CHLORIDE 0.9% 1,000 ML IV SCH (08:48)
[2019-06-13] MEDS ORDERED: CITALOPRAM 10 MG TABLET PO SCH (09:00)
--- NOTE | 2019-06-13 11:56 | PHARMACY PROGRESS NOTE ---
- Best Possible Medication History Admit Date and Time: 06/12/192103 Processed by: Pharmacy Medication History completed: Yes Patient Interview: Completed Secondary Source(s): Pharmacy records As the person ultimately responsible for medication therapy, providers are able to order a medication from an existing home medication list in [facility] via the "Reconcile Routine" prior to Confirmation of that medication by respiratory support technician. Such practice is discouraged except when the physician, in their clinical judgment, deems that a medical need exists for a medication without regard to previous use.
--- NOTE | 2019-06-13 13:49 | PROVIDER PROGRESS NOTE ---
Subjective - Prog Note Date Prog Note Date: 06/13/19 - Subjective Subjective: Reports feeling relatively well. Continues complain of right sided swelling. She reports no difficulty breathing or pain with swallowing. Denies fevers or chills. Current Medications - Current Medications Current Medications: Active Medications Acetaminophen (Tylenol) 650 mg PO Q4HR PRN PRN Reason: Pain 1 to 4 Citalopram Hydrobromide (Celexa) 10 mg PO DAILY [facility] Last Admin: 06/13/19 08:48 Dose: 10 mg Sodium Chloride (Normal Saline 0.9%) 1,000 mls @ 85 mls/hr IV .[id number] [facility] Last Admin: 06/13/19 08:48 Dose: 85 mls/hr Ampicillin Sodium/Sulbactam (Sodium 3 gm/ Sodium Chloride) 100 mls @ 200 mls/hr IV Q6HR [facility] Last Admin: 06/13/19 13:21 Dose: 200 mls/hr Morphine Sulfate (Morphine (Carpuject)) 2 mg IVP Q2HR PRN PRN Reason: Pain 8 to 10 Ondansetron HCl (Zofran Inj) 4 mg IVP Q6HR PRN PRN Reason: Nausea / Vomiting Ondansetron HCl (Zofran Odt) 4 mg TL Q6HR PRN PRN Reason: Nausea / Vomiting Sodium Chloride (Normal Saline Flush 0.9%) 10 ml IVP PRN PRN PRN Reason: NEEDED PER PROVIDER ORDERS Last Admin: 06/12/19 22:19 Dose: 10 ml Sodium Chloride (Normal Saline Flush 0.9%) 10 ml IVP 0100,0900,1700 [facility] Last Admin: 06/13/19 08:49 Dose: 10 ml Citalopram [CeleXA] 10 mg PO DAILY 06/12/19 Mirabegron [Myrbetriq] 25 mg PO DAILY 06/12/19 Mirtazapine [Remeron] 30 mg PO HS 06/13/19 azaTHIOprine [Imuran] 75 mg PO DAILY 06/13/19 Objective - Vital Signs/Intake & Output Reviewed Vital Signs: Yes Vital Signs: Vital Signs x48h Temp Pulse Pulse Resp BP Pulse Ox 06/13/19 08:00 36.5 C 89 16 94/61 98 06/13/19 06:13 36.7 C 83 16 96 Intake & Output: Intake & Output 06/10/19 06/11/19 06/12/19 06/13/19 23:59 23:59 23:59 23:59 Intake Total 115 1091.083 Balance 115 1091.083 - Objective General Appearance: positive: No acute distress, Alert Eyes Bilateral: positive: Normal inspection ENT: positive: ENT inspection nml, Pharynx nml. negative: Pharyngeal erythema Neck: positive: Other (Right side of the neck is swollen but nonerythematous. Mildly tender to palpation.). negative: Tracheal deviation Respiratory: positive: No respiratory distress. negative: Wheezes, Rales, R honchi Cardiovascular: positive: Regular rate & rhythm, No murmur. negative: Tachycardia, Bradycardia Abdomen: positive: Non-tender, No distention. negative: Tenderness, Guarding, Rebound Skin: positive: No rash, Warm, Dry Extremities: positive: Full ROM Neurologic/Psychiatric: positive: Oriented x3. negative: Disoriented to person, Disoriented to place, Disoriented to time - Lab Results Fish Bones: 06/13/19 07:43 06/13/19 07:43 Other Labs: Lab Results x24hrs 06/13/19 06/13/19 06/12/19 Range/Units 07:43 07:43 18:00 WBC 3.5 L (4.8-10.8) x10^3/uL RBC 3.62 L (4.20-5.40) 10^6/uL Hgb 12.2 (12.0-16.0) g/dL Hct 37.2 (37.0-47.0) % MCV 102.8 H (81.0-99.0) fL MCH 33.7 H (27.0-31.0) pg MCHC 32.8 (32.0-36.0) g/dL RDW 13.0 (12.0-15.0) % Plt Count 145 (130-450) 10^3/uL MPV 10.2 (7.9-10.8) fL Neut # (Auto) 2.9 (1.5-6.6) 10^3/uL Lymph # (Auto) 0.3 L (1.5-3.5) 10^3/uL [place] # (Auto) 0.3 (0.0-1.0) 10^3/uL Eos # (Auto) 0.0 (0.0-0.7) 10^3/uL Baso # (Auto) 0.0 (0.0-0.1) 10^3/uL Absolute Nucleated RBC 0.00 x10^3/uL Nucleated RBC % 0.0 /100WBC Sodium 140 (135-145) mmol/L Potassium 4.2 (3.5-5.0) mmol/L Chloride 107 (101-111) mmol/L Carbon Dioxide 24 (21-32) mmol/L Anion Gap 9.0 (6-13) BUN 19 (6-20) mg/dL Creatinine 0.6 (0.4-1.0) mg/dL Estimated GFR (MDRD) 102 (>89) Glucose 128 H (70-100) mg/dL Calcium 8.5 (8.5-10.3) mg/dL Total Bilirubin (0.2-1.0) mg/dL AST (10-42) IU/L ALT (10-60) IU/L Alkaline Phosphatase (42-121) IU/L Total Protein (6.7-8.2) g/dL Albumin (3.2-5.5) g/dL Globulin (2.1-4.2) g/dL Albumin/Globulin Ratio (1.0-2.2) Lipase (22-51) U/L Urine Color YELLOW Urine Clarity CLEAR (CLEAR) Urine pH 6.0 (5.0-7.5) PH Ur Specific [place] 1.010 (1.002-1.030) Urine Protein NEGATIVE (NEGATIVE) mg/dL Urine Glucose (UA) NEGATIVE (NEGATIVE) mg/dL Urine Ketones NEGATIVE (NEGATIVE) mg/dL Urine Occult Blood TRACE-INTA (NEGATIVE) Urine Nitrite NEGATIVE (NEGATIVE) Urine Bilirubin NEGATIVE (NEGATIVE) Urine Urobilinogen 0.2 (NORMAL) (NORMAL) E.U./dL Ur Leukocyte Esterase NEGATIVE (NEGATIVE) Urine RBC (0-5) /HPF Urine WBC (0-5) /HPF Ur Squamous Epith Cells (<= Few) Urine Bacteria (None Seen) /HPF Ur Microscopic Review NOT INDICATED Urine Culture Comments NOT INDICATED Urine Opiates Screen (NEGATIVE) Ur Oxycodone Screen (NEGATIVE) Urine Methadone Screen (NEGATIVE) Ur Propoxyphene Screen (NEGATIVE) Ur Barbiturates Screen (NEGATIVE) Ur Tricyclics Screen (NEGATIVE) Ur Phencyclidine Scrn (NEGATIVE) Ur Amphetamine Screen (NEGATIVE) U Methamphetamines Scrn (NEGATIVE) U Benzodiazepines Scrn (NEGATIVE) Urine Cocaine Screen (NEGATIVE) U Cannabinoids Screen (NEGATIVE) Ethyl Alcohol mg/dL 06/12/19 06/12/19 06/12/19 Range/Units 16:50 16:50 16:50 WBC 5.0 (4.8-10.8) x10^3/uL RBC 3.94 L (4.20-5.40) 10^6/uL Hgb 13.6 (12.0-16.0) g/dL Hct 41.5 (37.0-47.0) % MCV 105.3 H (81.0-99.0) fL MCH 34.5 H (27.0-31.0) pg MCHC 32.8 (32.0-36.0) g/dL RDW 13.2 (12.0-15.0) % Plt Count 151 (130-450) 10^3/uL MPV 9.7 (7.9-10.8) fL Neut # (Auto) 3.3 (1.5-6.6) 10^3/uL Lymph # (Auto) 0.8 L (1.5-3.5) 10^3/uL [place] # (Auto) 0.9 (0.0-1.0) 10^3/uL Eos # (Auto) 0.0 (0.0-0.7) 10^3/uL Baso # (Auto) 0.0 (0.0-0.1) 10^3/uL Absolute Nucleated RBC 0.00 x10^3/uL Nucleated RBC % 0.0 /100WBC Sodium 135 (135-145) mmol/L Potassium 3.5 (3.5-5.0) mmol/L Chloride 97 L (101-111) mmol/L Carbon Dioxide 29 (21-32) mmol/L Anion Gap 9.0 (6-13) BUN 24 H (6-20) mg/dL Creatinine 0.7 (0.4-1.0) mg/dL Estimated GFR (MDRD) 85 L (>89) Glucose 100 (70-100) mg/dL Calcium 8.6 (8.5-10.3) mg/dL Total Bilirubin 1.0 (0.2-1.0) mg/dL AST 24 (10-42) IU/L ALT 13 (10-60) IU/L Alkaline Phosphatase 41 L (42-121) IU/L Total Protein 6.4 L (6.7-8.2) g/dL Albumin 3.7 (3.2-5.5) g/dL Globulin 2.7 (2.1-4.2) g/dL Albumin/Globulin Ratio 1.4 (1.0-2.2) Lipase 36 (22-51) U/L Urine Color YELLOW Urine Clarity SL. CLOUDY (CLEAR) Urine pH 6.0 (5.0-7.5) PH Ur Specific [place] 1.020 (1.002-1.030) Urine Protein NEGATIVE (NEGATIVE) mg/dL Urine Glucose (UA) NEGATIVE (NEGATIVE) mg/dL Urine Ketones NEGATIVE (NEGATIVE) mg/dL Urine Occult Blood TRACE-LYSE (NEGATIVE) Urine Nitrite NEGATIVE (NEGATIVE) Urine Bilirubin NEGATIVE (NEGATIVE) Urine Urobilinogen 0.2 (NORMAL) (NORMAL) E.U./dL Ur Leukocyte Esterase SMALL H (NEGATIVE) Urine RBC 0-5 (0-5) /HPF Urine WBC 11-25 H (0-5) /HPF Ur Squamous Epith Cells MOD Squamous H (<= Few) Urine Bacteria Moderate H (None Seen) /HPF Ur Microscopic Review INDICATED Urine Culture Comments NOT INDICATED Urine Opiates Screen NEGATIVE (NEGATIVE) Ur Oxycodone Screen NEGATIVE (NEGATIVE) Urine Methadone Screen NEGATIVE (NEGATIVE) Ur Propoxyphene Screen NEGATIVE (NEGATIVE) Ur Barbiturates Screen NEGATIVE (NEGATIVE) Ur Tricyclics Screen NEGATIVE (NEGATIVE) Ur Phencyclidine Scrn NEGATIVE (NEGATIVE) Ur Amphetamine Screen NEGATIVE (NEGATIVE) U Methamphetamines Scrn NEGATIVE (NEGATIVE) U Benzodiazepines Scrn NEGATIVE (NEGATIVE) Urine Cocaine Screen NEGATIVE (NEGATIVE) U Cannabinoids Screen NEGATIVE (NEGATIVE) Ethyl Alcohol < 5.0 mg/dL - Diagnostic Imaging Diagnostic Imaging Results: positive: Final report reviewed ABX Reporting Has patient been on IV antibiotics over the past 48 hours?: Yes Assessment/Plan - Problem List (1) Retropharyngeal abscess Impression: CT of the neck was concerning for 7 mm retropharyngeal abscess. She is fortunately not septic and able protect her airway at the moment. There is mild narrowing of the oropharynx and supraglottic larynx evident on imaging. She remains on Unasyn IV. I will start her on Decadron IV given there is oropharynx inflammation. She is n.p.o. at this moment. She has been accepted at [facility] for ENT evaluation and we are awaiting a bed assignment. We will keep her n.p.o. for the time being in case she may need intervention. If it appears she will not be getting intervention today, will start her on a clear liquid diet as tolerated and make her n.p.o. at midnight. (2) Autoimmune encephalitis Impression: There was concern she may have been altered in the emergency department but CT head was negative. She appears to be back to her baseline at this moment. We are holding her home immunosuppressants given her active infection.
[2019-06-13] MEDS: DEXAMETHASONE 4 MG/ML VIAL IVP SCH ×2 (14:26→20:11)
[2019-06-13 19:58] VITALS: BP 112/65
--- NOTE | 2019-06-13 21:30 | Discharge Plan ---
Discharge Plan Problem Reviewed?: Yes Disposition: 02 Transfer Acute Care Hosp Condition: Stable No Smoking: If you smoke, Please STOP! Call for help.
--- NOTE | 2019-06-13 21:32 | DISCHARGE SUMMARY ---
"Discharge Summary Admit Date: 06/12/19 Discharge Date: 06/13/19 Discharging Provider: Tracie Campbell MD Primary [facility] Code Status: Attempt Resuscitation Condition at Discharge: Stable Discharge Disposition: 02 Transfer Acute Care Hosp Discharge [facility] Name: [facility] - DIAGNOSES Discharge Diagnoses with Status of Each Condition: 1. Retropharyngeal abscess 2. 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 She is on immunotherapy and is followed by [facility]. She takes azathioprine. 3 days ago she noted that the right side of her neck was starting to hurt especially when she turned her head. She denies fever, sweats. No recent dental procedures. She then started having problems with swallowing on that same side of her neck. As she swallows she feels like even water gets stuck there. Her family feels that she is more confused than usual with history of encephalopathy and brought her in. [place] to [email or web address] for work so she is here with mother in law and a cousin. She was evaluated in the emergency room by Dr. Whitlock and has normal oxygen saturations, is afebrile, mildly tachycardic at 102. Blood pressure slightly low at 99/70. Electrolytes are normal. White cell count is normal. She does have a mild confusion on physical exam but no focal neurological deficits. CT of the neck was done and she has right-sided pharyngitis/tonsillitis with an early retropharyngeal abscess. It is causing narrowing of the oropharynx and supraglottic larynx. A reactive retropharyngeal effusion is present up to 7 mm in AP thickness at the level of C3-C4. Dr. Whitlock has contacted [facility]. Her family states there is very specific management of her encephalopathy when it gets worse. He was able to contact Dr. Noel Gillespie, ENT, who is excepted her in transfer. [facility] they do not have a bed available for her tonight. I will be admitting her to our service overnight until she can be transferred tomorrow morning. In the emergency room she is already received steroids, IV antibiotics. - CONSULTS | PROCEDURES Procedures: 1. CT of neck: right-sided pharyngitis/tonsillitis with an early retropharyngeal abscess. It is causing narrowing of the oropharynx and supraglottic larynx. A reactive retropharyngeal effusion is present up to 7 mm in AP thickness at the level of C3-C4. 2. Negative MUDDS screen 3. Head CT with mild cortical atrophic changes with chronic bifrontal abnormalities. No evidence of acute intracranial abnormality. - HOSPITAL COURSE Hospital Course: She was placed on IV antibiotics, received Decadron for 2 doses. Most of her encephalopathy seems to have resolved. She appears to be a oriented, well spoken female after receiving her first doses of steroids. She had no problems with swallowing and was not drooling. She remained afebrile during her stay. Pain was controlled. She was transferred in stable condition. Discharge exam had a temperature of 36.8, pulse of 86 that was sinus. Blood pressure 112/65. Respirations 18. 97% on room air. She had a hoarse voice. Occasionally her voice would break while speaking. Tolerated a normal diet on admission. Was transitioned to [facility] in anticipation of possible surgery. She was alert, oriented. Ambulating in her room without any assist. Lungs were clear. She did have some right-sided neck soft tissue fullness and pain but it did not worsen during her stay. - ALLERGIES Allergies/Adverse Reactions: Allergies Allergy/AdvReac Type Severity Reaction Status Date / Time No Known Drug Allergies Allergy Verified 06/12/19 16:17 - MEDICATIONS Home Medications: Ambulatory Orders Medication Instructions Recorded Confirmed Citalopram [CeleXA] 10 mg PO DAILY 06/12/19 06/12/19 Mirabegron [Myrbetriq] 25 mg PO DAILY 06/12/19 06/12/19 Mirtazapine [Remeron] 30 mg PO HS 06/13/19 06/13/19 azaTHIOprine [Imuran] 75 mg PO DAILY 06/13/19 06/13/19 - LABS Result Diagrams: 06/13/19 07:43 06/13/19 07:43"
== END 2019-06-13 20:15 | disposition short-term general hospital (02) | DRG 152 ==
LOC: ED 16:04 → MS2 21:04
PROVIDERS: ADMIT Specialist; ATTEND Specialist
DX: J39.0 Retropharyngeal and parapharyngeal abscess (principal); G04.81 Other encephalitis and encephalomyelitis; Z79.899 Other long term (current) drug therapy
CPT/HCPCS: 36415; 70450; 70491; 80048; 80053; 80306; 80320; 81001; 81003; 83690; 85025; 96365; 96375; 99285; A9270; Q9967; 87086

== ENCOUNTER 2019-06-13 20:18 | Outpatient (CLI) | payer BC | END 2019-06-13 20:19 | disposition home or self-care (01) | LOC: EMS 20:18 | PROVIDERS: ATTEND Surgery | DX: J39.0 Retropharyngeal and parapharyngeal abscess (principal) | CPT/HCPCS: A0425; A0428 ==